=== PATIENT | male | born 1960 | race Caucasian/White ===

== ENCOUNTER → 2019-05-21 20:27 | Outpatient (CLI) | payer MEDICARE ==
[2019-05-21 22:49] LABS: BASOPHILS 0.4 % (0-2); EOSINOPHILS 1.9 % (0-7); HEMATOCRIT 50.1 % (42.0-54.0); IMMATURE GRANULOCYTES 0.3 % (0-5); MCH 31.1 pg (26.0-34.0); MCHC 33.9 g/dL (31.0-37.0); MCV 91.6 fL (80.0-100.0); MEAN PLATELET VOLUME 11.2 fL (7.4-10.4); MONOCYTES 10.3 % (2-11); NEUTROPHILS 65.1 % (40-80); PLATELET COUNT 196 10x3/uL (130-400); RBC 5.47 10x6/uL (4.20-6.10); RDW 12.1 % (11.5-14.5); WBC 11.9 10x3/uL (4.8-10.8)
[2019-05-22 00:19] LABS: ERYTHROCYTE SEDIMENTATION RATE 11 mm/hr (0-20)
== END | disposition home or self-care (01) ==
LOC: D.LABREF 20:27
PROVIDERS: ATTEND Orthopaedic Surgery
DX: M25.561 Pain in right knee (principal)

== ENCOUNTER → 2019-05-24 15:17 | Outpatient (CLI) | payer MEDICARE ==
[2019-05-24 18:10] LABS: PROTEIN - BODY FLUID 2.5 G/DL
[2019-05-24 18:26] LABS: MACROPHAGES BF 4 %; NEUT - BF 76 %
== END | disposition home or self-care (01) ==
LOC: D.LABREF 15:17
PROVIDERS: ATTEND Orthopaedic Surgery
DX: M25.561 Pain in right knee (principal)

== ENCOUNTER → 2019-06-05 07:34 | Outpatient (CLI) | payer MEDICARE | END | disposition home or self-care (01) | LOC: D.NM 07:34 | PROVIDERS: ATTEND Orthopaedic Surgery | DX: Z96.659 Presence of unspecified artificial knee joint (principal) ==

== ENCOUNTER 2019-09-12 08:00 | Outpatient (CLI) | payer MEDICARE ==
[2019-09-12] MEDS ORDERED: MOBIC7.5 MG PO (11:00)
[2019-09-12] MEDS ORDERED: PERCOCET 10-321 EAC1 PO (11:00)
[2019-09-18 13:34] VITALS: BMI 35.0
== END 2019-09-12 08:01 | disposition home or self-care (01) ==
LOC: D.PAN 08:00 → EDSTATUS 10:00 → D.OPS 10:00 → D.SDCHOLD 10:00
PROVIDERS: ATTEND Orthopaedic Surgery
DX: M16.11 Unilateral primary osteoarthritis, right hip (principal)

== ENCOUNTER → 2019-09-12 16:22 | Outpatient (CLI) | payer MEDICARE ==
[~2019-09-12 16:22] MED LIST: MOBIC7.5 MG PO; PERCOCET 10-321 EAC1 PO
== END | disposition home or self-care (01) ==
LOC: D.LABREF 16:22
PROVIDERS: ATTEND Orthopaedic Surgery
DX: M17.11 Unilateral primary osteoarthritis, right knee (principal)

== ENCOUNTER 2019-09-18 12:12 | Inpatient (IN) | payer MEDICARE ==
[2019-09-12 11:55] LABS: BASOPHILS 0.6 % (0-2); EOSINOPHILS 6.2 % (0-7); HEMATOCRIT 47.8 % (42.0-54.0); IMMATURE GRANULOCYTES 0.2 % (0-5); LYMPHOCYTES 38.1 % (15-50); MCH 30.4 pg (26.0-34.0); MCHC 33.5 g/dL (31.0-37.0); MCV 90.7 fL (80.0-100.0); MEAN PLATELET VOLUME 10.4 fL (7.4-10.4); MONOCYTES 8.6 % (2-11); NEUTROPHILS 46.3 % (40-80); PLATELET COUNT 203 10x3/uL (130-400); RBC 5.27 10x6/uL (4.20-6.10); RDW 12.5 % (11.5-14.5); WBC 6.6 10x3/uL (4.8-10.8)
[2019-09-12 12:09] LABS: APTT 30.7 SECONDS (22.8-39.4); INR 0.98 (0.85-1.17); PROTIME 12.9 SECONDS (11.6-15.0)
[2019-09-12 12:32] LABS: ANION GAP 9.9 mmol/L (8-16); CALCIUM 9.1 mg/dL (8.5-10.1); CARBON DIOXIDE 29.4 mmol/L (21.0-32.0); CREATININE - SERUM 1.1 mg/dL (0.6-1.3); POTASSIUM - SERUM 4.3 mmol/L (3.5-5.1)
[2019-09-18] VITALS (11 sets, daily range): BP systolic 126–174; BP diastolic 78–96; Ht 195.6 cm; Wt 134.1 kg
[~2019-09-18] VITALS: Ht 195.6 cm; Wt 134.1 kg
[2019-09-18 09:37] LABS: BILIRUBIN NEGATIVE (NEGATIVE); GLUCOSE NEGATIVE (NEGATIVE); KETONE NEGATIVE (NEGATIVE); NITRITE NEGATIVE (NEGATIVE); SPECIFIC GRAVITY 1.015 (1.005-1.020); UROBILINOGEN NORMAL (NORMAL)
--- NOTE | 2019-09-18 09:43 | NUR ---
THROUGH TRAFFIC KEPT TO MINIMUM. HIBACLENS AND ALCOHOL USED TO SCRUB FROM RIGHT HIP TO LOWER CALF PRIOR TO CHLORAPREP. STERILE GOWNED AND GLOVED TO CHLORAPREP LEG/HIP.
--- NOTE | 2019-09-18 12:10 | NUR ---
CONSULTED DR MEDRANO FOR FURTHER ORDERS R/T PAIN. NEW ORDERS RECIEVED TO GIVE BENADRYL 25 MG IV AND THEN ADMINISTER DILAUDID IN 0.5 MG DOSES. WILL MONITOR CLOSLY FOR ADVERSE EFFECTS.
--- NOTE | 2019-09-18 12:20 | NUR ---
PATIENT TOLERATING DILAUDID WELL. DENIES ANY SOB OR DIFFICULTY SWALLOWING. WILL CONTINUE TO MONITOR. O2 SAT REMAINS >94% ON ROOM AIR.
--- NOTE | 2019-09-18 13:27 | NUR ---
PT RECIEVED FROM RECOVERY TO ROOM 1212 VIA BED. PT GROGGY, ALERT AND ORIENTED X 4. RESP EVEN AND UNLABORED. PT REPORTS PAIN 10/10 AT THIS TIME, BUT REPORTS CHRONIC PAIN. IV TO LEFT HAND WITH 1/2 NS @ 50ML/HR INFUSING VIA PUMP. SITE WITHOUT REDNESS OR EDEMA. DRESSING C/D/I TO RIGHT GROIN. PT ORIENTED TO ROOM AND BED CONTROLS. CL WITHIN REACH. ENCOURAGED TO CALL WITH NEEDS. CONTINUE POC
--- NOTE | 2019-09-18 15:25 | OP ---
PATIENT NAME: FRANK FARMER [place] MEDICAL RECORD: [id number] :62 LOCATION:D.M3 D.1212 ADMISSION DATE:09/18/19 SURGEON: SCOTT FARMER, DATE OF OPERATION: 09/18/2019 PROCEDURE PERFORMED: Right total hip arthroplasty. PREOPERATIVE DIAGNOSIS: Severe right hip osteoarthritis. POSTOPERATIVE DIAGNOSIS: Severe right hip osteoarthritis. INDICATIONS: Mr. Farmer is a 59-year-old male who has had right hip pain for quite some time. He was to the point where he could not even walk. It was therefore an urgent case and he has been dealing with it for a while, but progressively got worse to where he was almost bedridden. After discussing with him the risks and benefits of the procedure including infection, bleeding, damage to vessels, fractures, continued pain, need for further surgery, fracture to the femur, loss of sensation of the anterolateral thigh, blood clots, and even and he signed the consent. SURGEON: Scott Farmer MD DESCRIPTION OF PROCEDURE: The patient was taken to the operative suite, laid in the supine position, given general anesthetic and intubated. He was given a gram of vancomycin preoperatively. The patient was then moved to the [place] table and positioned. The right hip was then prepped and draped in sterile fashion. Timeout was performed, everyone was in agreement of the correct side, site, patient and procedure. I then began making an incision over the tensor fascia orlando muscle and careful dissection was made down to the muscle itself. The fascia was taken anteriorly, muscle belly posteriorly and then opened up the rectus interval. The rectus was then taken medially. The ascending branch of the lateral femoral circumflex was then encountered and tied off and coagulated with the Aquamantys. We then exposed the neck of the femur and went to the capsule and tagged the capsule and put Hohmann's on the inside of the capsule around the neck and made a cut to remove the ball over the head of the femur and removed the labrum. The Charnley was then placed and began reaming, reamed up to a 58 and then remedialized a little bit more and then went back up to a 58 and impacted 58 cup fit very well. We then exposed the femur. It was very tight and releases were done and then use a cookie cutter and a canal finder to get into the canal, broached to an 11. It was in a little varus and to get more lateral, so we just could get more lateral and then went up to 14, 14 seemed to well and then reduced it with a +3 neck and this fit was good with appropriate lengths. I then removed that and irrigated out and put the implant in. Prior to this, the poly to the cup was put in. He could not have dual mobility due to his COBALT ALLERGY, so we used ceramic and titanium. The 14 stem was then put in with high offset and ceramic head was impacted in place and the hip was then reduced. It was seen to be in good position on AP hip as well as AP pelvis and equal lengths to the left. We then irrigated out with 500 mL of normal saline with 10 mL of 10% povidone iodine and let it sit for 3 minutes and irrigated out with a liter of normal saline. I then closed the capsule with #2 Ethibond in a nmreeg-mc-movda fashion and then put in Chilango powder, vancomycin and tobramycin powder. The tensor fascia orlando fascia was then closed with #1 Vicryl in a xvdwxt-gf-rftrm fashion and running locking stitch. Darius Gonsales was then assisting me with closing and he closed the skin with 2-0 Vicryl in inverted interrupted fashion, 4-0 Monocryl ran on the skin and Prineo glue placed on the OPERATIVE REPORT [id number] FRANK FARMER skin. It was then dressed with Telfa and Tegaderm. He was then awakened and taken to recovery in stable condition. BLOOD LOSS: Approximately 400 mL. COMPLICATIONS: None. TRANSINT:[id number] Voice Confirmation ID: [id number] DOCUMENT ID: [id number] SCOTT FARMER DO at 1525 CC: [id number] DICTATION DATE: 09/18/19 1129 STILL CLEANER TUBE: 09/18/19 1456 ADM IN [facility] [address] [id number]
[2019-09-19 03:54] VITALS: BP 138/79
[2019-09-19 05:07] LABS: BASOPHILS 0.1 % (0-2); EOSINOPHILS 0.3 % (0-7); HEMATOCRIT 39.1 % (42.0-54.0); HEMOGLOBIN 12.8 g/dL (13.5-17.5); IMMATURE GRANULOCYTES 0.3 % (0-5); LYMPHOCYTES 22.3 % (15-50); MCH 29.8 pg (26.0-34.0); MCHC 32.7 g/dL (31.0-37.0); MCV 90.9 fL (80.0-100.0); MEAN PLATELET VOLUME 10.5 fL (7.4-10.4); MONOCYTES 10.8 % (2-11); NEUTROPHILS 66.2 % (40-80); PLATELET COUNT 222 10x3/uL (130-400); WBC 7.6 10x3/uL (4.8-10.8)
[2019-09-19 05:35] LABS: ALBUMIN 3.5 g/dL (3.4-5.0); ANION GAP 14.2 mmol/L (8-16); BILIRUBIN - TOTAL 0.85 mg/dL (0.2-1.3); CALCIUM 8.1 mg/dL (8.5-10.1); CARBON DIOXIDE 25.7 mmol/L (21.0-32.0); CREATININE - SERUM 1.2 mg/dL (0.6-1.3); MAGNESIUM - SERUM 1.8 mg/dL (1.8-2.4); POTASSIUM - SERUM 3.9 mmol/L (3.5-5.1); PROTEIN - SERUM 6.4 g/dL (6.4-8.2)
--- NOTE | 2019-09-19 06:20 | NUR ---
PATIENT STATES PAIN 7/10 ON REASSESSMENT. OFFERED PATIENT TORADOL PER ORDERS. PATIENT REFUSED AT THIS TIME.
--- NOTE | 2019-09-19 07:30 | NUR ---
AWAKE AND ALERT. ORIENTED X3. NO C/O AT THIS TIME. LUNGS ARE CLEAR BILATERALLY, NO COUGH NOTED. SKIN IS INTACT WITHOUT REDNESS EXCEPT INCISION TO RIGHT HIP WHICH HAS A DRY INTACT DRESSING IN PLACE. IV TO LEFT HAND IS PATENT WITHOUT REDNESS AT INSERTION SITE. DENIES NEEDS. REPORTS USING IS INSTRUCTED.
[2019-09-19 07:44] VITALS: BP 128/72
--- NOTE | 2019-09-19 08:09 | NUR ---
UP TO BR PER SELF. VOIDED WITHOUT DIFFICULTY.
[2019-09-19] MEDS ORDERED: PERCOCET 10-321 EAC1 PO (08:28)
[2019-09-19] MEDS ORDERED: ELIQUIS2.5 MG PO (08:28)
[2019-09-19] MEDS ORDERED: VISTARIL50 MG PO (08:29)
[2019-09-19] MEDS ORDERED: CIPRO500 MG PO (08:29)
[2019-09-19] MEDS ORDERED: DOXYCYCLINE HY100 M2 PO (08:31)
--- NOTE | 2019-09-19 12:27 | NUR ---
DISCHARGE INSTRUCTIONS GIVEN BOTH VERBALLY AND WRITTEN. ALL QUESTIONS ANSWERED. PATIENT VERBALIZED UNDERSTANDING OF SAME. NEEDED PRESCRIPTIONS ESCRIBED TO PHARMACY OF CHOICE AND GIVEN HARD COPIES OF SOME. IV TO LEFT HAND D/C WITH CATHETER INTACT. WAITING ON RIDE AT THIS TIME.
[2019-09-19 12:30] VITALS: BP 143/83
--- NOTE | 2019-09-19 13:12 | NUR ---
DISCHARGED TO HOME AMBULATORY WITH FAMILY. ALL BELONGINGS WITH PATIENT.
--- NOTE | 2019-09-19 19:44 | MORECARE ---
CASE MANAGEMENT DISCHARGE SUMMARY PATIENT: FRANK FARMER [place] UNIT: [id number] ADM DATE: 09/18/19 AGE: 59 : 62 SEX: M ROOM/BED: D.1212 AUTHOR: POOJA TERAN PHYSICIAN: REFERRING PHYSICIAN: CHRISTIE FARMER DO DATE OF SERVICE: 09/19/19 Discharge Plan Patient Name: FRANK FARMER Facility: [facility]:[place] : 1960 Planned Disposition: Home with Home Health Anticipated Discharge Date: Discharge Date: 09/19/2019 Expected LOS: Initial Reviewer: [email or web address] Initial Review Date: 09/18/2019 Generated: 09/19/19 8:43 pm DCPIA - Discharge Planning Initial Assessment Updated by [email or web address]: Brianna Gray on 09/19/19 7:41 pm * Is the patient Alert and Oriented? Yes * How many steps to enter\exit or inside your home? 1-2 * PCP Sivae * Pharmacy [facility] * Preadmission Environment Home Alone * ADLs Independent * Other Equipment walker, w/c , s/c, medical bed * List name and contact numbers for known caregivers / representatives who currently or will assist patient after discharge: Rosa Do - daughter- [phone] Kyler Westbrookdaughter - [phone] * Verbal permission to speak to the caregivers and representatives has been obtained from the patient. Yes * Community resources currently utilized None * Additional services required to return to the preadmission environment? No * Can the patient safely return to the preadmission environment? Yes * Has this patient been hospitalized within the prior 30 days at any hospital? No Patient Name: FRANK FARMER Page [id number] at 1943 All edits/amendments must be made on the electronic document DICTATION DATE: 09/19/191942 FARM PRODUCTS SHIPPER: KEKE 09/19/191942 RPT#: [id number] DC DATE:09/19/19 STATUS: DIS IN [facility] [address] [place] [address] END OF REPORT
--- NOTE | 2019-09-19 19:57 | MORECARE ---
CASE MANAGEMENT DISCHARGE SUMMARY PATIENT: FRANK FARMER [place] UNIT: [id number] ADM DATE: 09/18/19 AGE: 59 : 62 SEX: M ROOM/BED: D.1212 AUTHOR: JEFFRY,DOC PHYSICIAN: REFERRING PHYSICIAN: CHRISTIE FARMER DO DATE OF SERVICE: 09/19/19 Discharge Plan Patient Name: FRANK FARMER Facility: [facility]:[place] : 1960 Planned Disposition: Home with Home Health Anticipated Discharge Date: Discharge Date: 09/19/2019 Expected LOS: Initial Reviewer: [email or web address] Initial Review Date: 09/18/2019 Generated: 09/19/19 8:56 pm Comments DCP- Discharge Planning Updated by [email or web address]: Brianna Gray on 09/19/19 6:[address] Patient Name: FRANK FARMER Admission Status: Elective Accout number: [id number] Admission Date: 09-18-2019 : 1960 Admission Diagnosis: Attending: CHRISTIE FARMER Current LOS: 1 Anticipated DC Date: Planned Disposition: Home with Home Health Primary Insurance: MEDICARE A & B Discharge Planning Comments: CM met with patient at bedside after explaining CM role and obtaining verbal consent. Patient lives at home alone but his daughter Kyler is going to come and stay with him for awhile when discharged. Patient feels this would be a safe discharge. CM discussed availability / needs of home health and medical equipment. Patient has requested home health for his therapy. KRISTIN signed. MAHESH contacted Coleen with [facility] and faxed records. Coleen stated that the patient lives outside this office area. but she would forward it to the appropriate office. Patient denies any discharge needs at this time. Patient states he will have his family drive him home upon discharge. CM will continue to follow and assist as needed with discharge planning / needs. Director Web: Brianna Gray DCPIA - Discharge Planning Initial Assessment Updated by [email or web address]: Brianna Gray on 09/19/19 7:41 pm * Is the patient Alert and Oriented? Yes * How many steps to enter\exit or inside your home? 1-2 * PCP Seme * Pharmacy [facility] * Preadmission Environment Home Alone * ADLs Independent * Other Equipment walker, w/c , s/c, medical bed * List name and contact numbers for known caregivers / representatives who currently or will assist patient after discharge: Rosa Do - daughter- [phone] Kyler Westbrookdaughter - [phone] * Verbal permission to speak to the caregivers and representatives has been obtained from the patient. Yes * Community resources currently utilized None * Additional services required to return to the preadmission environment? No * Can the patient safely return to the preadmission environment? Yes * Has this patient been hospitalized within the prior 30 days at any hospital? No Coverage Notice Reviewer: [email or web address] Pietro Gray Notice Issued Date-Time: 09/19/2019 11:00 Notice Type: Patient Choice Letter Notice Delivered To: Patient Relationship to Patient: Self Intelligence Consultant Name: Delivery Method: HAND - Hand Delivered [place] Days: Prior Verbal Notification: Recipient Understood Notice: Yes Recipient Signature: Yes Med Rec Note Co-signed by Attending: Coverage Notice Comment: Last DP export: 09/19/19 6:44 p Patient Name: FRANK FARMER Page [phone] at 1955 All edits/amendments must be made on the electronic document DICTATION DATE: 09/19/191955 CORE MANAGER: KEKE 09/19/191955 RPT#: [id number] DC DATE:09/19/19 STATUS: DIS IN [facility] [address] [place] [address] END OF REPORT
== END 2019-09-19 13:13 | disposition home health service (06) | DRG 470 ==
LOC: D.OPS 12:12 → D.M3 12:22 → D.OPS 12:23 → D.M3 12:25 → EDSTATUS 14:15 → D.OPS 14:15 → D.SDCHOLD 14:15 → D.M3 09-19 13:13
PROVIDERS: Anesthesiology; Family Medicine Adult Medicine; ADMIT Orthopaedic Surgery; ATTEND Orthopaedic Surgery
PROC: 0SR90J9 Replacement of Right Hip Joint with Synthetic Substitute, Cemented, Open Approach (ICD-10-PCS; principal; 2019-09-18 08:35)
DX: M16.11 Unilateral primary osteoarthritis, right hip (principal)